=== PATIENT | male | born 1995 | race Caucasian/White ===

== ENCOUNTER 2020-08-11 12:48 | Emergency (ER) | payer BC ==
[2020-08-11 15:57] LABS: Absolute Lymphocytes (CBC) 2.4 K/uL (0.7-4.9); Basophils % 0.3 % (0-1.3); Hematocrit 43.9 % (39.6-49.0); Lymphocytes % 27.6 % (15.3-44.8); MPV 8.6 fL (7.6-11.3); Protime INR 1.02
[2020-08-11 16:12] LABS: ALT/SGPT 30 U/L (12-78); AST/SGOT 11 U/L (15-37); Albumin 4.1 g/dL (3.4-5.0); Alkaline Phosphatase 79 U/L (45-117); BUN Blood Urea Nitrogen 17 mg/dL (7-18); Bicarbonate 27 mmol/L (21-32); Bilirubin Direct 0.1 mg/dL (0-0.2); Bilirubin Total 0.5 mg/dL (0.2-1.0); Glucose Level 110 mg/dL (74-106); Magnesium 2.4 mg/dL (1.8-2.4); NT PRO-BNP 13 pg/mL (<125); Potassium 3.9 mmol/L (3.5-5.1); Protein, Total 7.3 g/dL (6.4-8.2); Sodium Level 140 mmol/L (136-145); Troponin (Emerg Dept Use Only) < 0.02 ng/mL (0.0-0.045)
[2020-08-11] MEDS ORDERED: KETOROLAC 30 MG/ML INJ ONE (16:29)
--- NOTE | 2020-08-11 16:38 | RAD REPORT ---
EXAM DESCRIPTION: RAD - Chest Single View - 08/11/2020 4:18 pm CLINICAL HISTORY: CHEST PAIN COMPARISON: None TECHNIQUE: AP portable chest image was obtained 08/11/2020 4:18 pm . FINDINGS: Lungs are clear. Heart and vasculature are normal. No measurable pleural effusion and no p neumothorax. No acute bony abnormality seen. No acute aortic findings suspected. IMPRESSION: No acute cardiopulmonary process.
--- NOTE | 2020-08-11 17:05 | EDPHYS ---
Physician Documentation [facility] Name: Griffin Eugene Age: 25 yrs Sex: Male : 1995 Arrival Date: 08/11/2020 Time: 12:49 Bed 30 Private MD: ED Physician Ken Bowman HPI: 08/11 16:18 This 25 yrs old Male presents to ER via Ambulatory with complaints of Chest jmm Pain. 16:18 The patient or guardian reports chest pain that is located primarily in the anterior [facility] chest wall. The pain does not radiate. Associated signs and symptoms: Pertinent positives: shortness of breath. The chest pain is described as sharp. Duration: The patient or guardian reports a single episode, that is still ongoing, and unchanged. Modifying factors: The symptoms are alleviated by remaining still, the symptoms are aggravated by movement, palpation of area, twisting torso. This is a 25 year old male with no known chronic medical conditions that presents to the ED with complaints of left sidwed chest pain beginning at approx 10 am. Patient states symptoms are worsened with movement. Patient states yesterday inhaling smoke inadvertently yesterday while burning paper. . Historical: - Allergies: 13:02 No Known Allergies; iw - Home Meds: 13:02 None [Active]; iw - PMHx: 13:02 None; iw - PSHx: 13:02 eye; iw - Immunization history:: Adult Immunizations. - Social history:: Smoking status: Reported history of juuling and/or vaping. ROS: 16:18 Constitutional: Negative for fever, chills, and weight loss. jmm 16:18 Cardiovascular: Positive for chest pain. 16:18 Respiratory: Positive for shortness of breath. 16:18 All other systems are negative. Exam: 16:18 Constitutional: This is a well developed, well nourished patient who is awake, alert, jmm and in no acute distress. Head/Face: atraumatic. Eyes: EOMI, no conjunctival erythema appreciated ENT: Moist Mucus Membranes Neck: Trachea midline, Supple 16:18 Respiratory: Normal respirations, no respiratory distress appreciated Abdomen/GI: Non distended, soft Back: Normal ROM Skin: General appearance color normal MS/ Extremity: Moves all extremities, no obvious deformities appreciated, no edema noted to the lower extremities Neuro: Awake and alert, normal gait Psych: Behavior is normal, Mood is normal, Patient is cooperative and pleasant 16:18 Chest/axilla: Inspection: normal, Palpation: tenderness, that is moderate, of the anterior aspect of left upper chest, that totally reproduces the patient's complaints. 16:18 Cardiovascular: Rate: normal, Rhythm: regular. Vital Signs: 13:02 BP 126 / 63; Pulse 58; Resp 17; Temp 97.6; Weight 120.2 kg; Height 5 ft. 9 in. (175.26 iw cm); Pain 6/10; 13:16 Pulse Ox 100% on R/A; ca1 16:30 BP 122 / 57; Pulse 58; Resp 17 S; Pulse Ox 99% on R/A; ca1 17:15 BP 120 / 57; Pulse 57; Resp 18 S; Pulse Ox 100% on R/A; ca1 13:02 Body Mass Index 39.13 (120.20 kg, 175.26 cm) iw MDM: 15:34 Patient medically screened. [facility] 17:03 Data reviewed: vital signs, nurses notes, lab test result(s), EKG, radiologic studies, [facility] plain films. Counseling: I had a detailed discussion with the patient and/or guardian regarding: the historical points, exam findings, and any diagnostic results supporting the discharge/admit diagnosis, lab results, radiology results, the need for outpatient follow up, to return to the emergency department if symptoms worsen or persist or if there are any questions or concerns that arise at home. ED course: Patient is alert and non toxic in appearance in the ED. HEART score = 1, PERC negative. Patient advised to return to the ED if symptoms worsen. . 08/11 15:36 Order name: Basic Metabolic Panel [facility] 08/11 15:36 Order name: CBC with Diff [facility] 08/11 15:36 Order name: LFT's; Complete Time: 16:15 [facility] 08/11 15:36 Order name: Magnesium; Complete Time: 16:15 [facility] 08/11 15:36 Order name: NT PRO-BNP; Complete Time: 16:15 [facility] 08/11 15:36 Order name: PT-INR; Complete Time: 16:02 [facility] 08/11 15:36 Order name: Troponin (emerg Dept Use Only); Complete Time: 16:15 [facility] 08/11 15:36 Order name: XRAY Chest (1 view); Complete Time: 16:46 [facility] 08/11 15:36 Order name: EKG; Complete Time: 15:36 [facility] 08/11 15:36 Order name: Cardiac monitoring; Complete Time: 15:50 [facility] 08/11 15:36 Order name: EKG - Nurse/Tech; Complete Time: 15:42 [facility] 08/11 15:36 Order name: Basic Metabolic Panel; Complete Time: 16:15 [facility] 08/11 15:36 Order name: CBC with Automated Diff; Complete Time: 16:02 [facility] 08/11 15:36 Order name: IV Saline Lock; Complete Time: 15:50 [facility] 08/11 15:36 Order name: Labs collected and sent; Complete Time: 15:50 [facility] 08/11 15:36 Order name: O2 Per Protocol; Complete Time: 15:50 [facility] 08/11 15:36 Order name: O2 Sat Monitoring; Complete Time: 15:50 [facility] Administered Medications: 16:14 Drug: Ketorolac 30 mg Route: IVP; Site: right antecubital; ca1 17:33 Follow up: Response: No adverse reaction; Pain is decreased ca1 Disposition: 17:35 Co-signature as Attending Physician, Ken Bowman MD. rn Disposition: 08/11/20 17:04 Discharged to Home. Impression: Chest pain, unspecified. - Condition is Stable. - Discharge Instructions: Nonspecific Chest Pain. - Prescriptions for Prednisone 20 mg Oral Tablet - take 3 tablet by ORAL route once daily for 5 days; 15 tablet. - Work release form, Medication Reconciliation Form, Thank You Letter, Antibiotic Education, Prescription Opioid Use form. - Follow up: Private Physician; When: 2 - 3 days; Reason: Recheck today's complaints, Continuance of care, Re-evaluation by your physician. Signatures: Dispatcher [employer] [facility] Fernie Ferrell PA PA jmm Williams, Irene, Ken Velazquez RN, MD MD rn Acob, Cheryl, RN RN ca1 Corrections: (The following items were deleted from the chart) 17:34 17:04 08/11/2020 17:04 Discharged to Home. Impression: Chest pain, unspecified. ca1 Condition is Stable. Forms are Medication Reconciliation Form, Thank You Letter, Antibiotic Education, Prescription Opioid Use. Follow up: Private Physician; When: 2 - 3 days; Reason: Recheck today's complaints, Continuance of care, Re-evaluation by your physician. victor hugo
--- NOTE | 2020-08-11 17:05 | ER ---
Nurse's Notes [facility] Name: Griffin Eugene Age: 25 yrs Sex: Male : 1995 Arrival Date: 08/11/2020 Time: 12:49 Bed 30 Private MD: Diagnosis: Chest pain, unspecified Presentation: 08/11 13:14 Chief complaint: Patient states: Chest pain 3 hrs [employer]. Denies cough, injury to chest. ca1 Coronavirus screen: Client denies travel out of the [place] in the last 14 days. At this time, the client does not indicate any symptoms associated with coronavirus-19. Ebola Screen: Patient negative for fever greater than or equal to 101.5 degrees Fahrenheit, and additional compatible Ebola Virus Disease symptoms Patient denies exposure to infectious person. Patient denies travel to an Ebola-affected area in the 21 days before illness onset. No symptoms or risks identified at this time. Initial Sepsis Screen: Does the patient meet any 2 criteria? No. Patient's initial sepsis screen is negative. Does the patient have a suspected source of infection? No. Patient's initial sepsis screen is negative. Risk Assessment: Do you want to hurt yourself or someone else? Patient reports no desire to harm self or others. Onset of symptoms was August 11, 2020. 13:14 Method Of Arrival: Ambulatory ca1 13:14 Acuity: NOY 3 ca1 13:15 Acuity: NOY 3 iw Historical: - Allergies: 13:02 No Known Allergies; iw - Home Meds: 13:02 None [Active]; iw - PMHx: 13:02 None; iw - PSHx: 13:02 eye; iw - Immunization history:: Adult Immunizations. - Social history:: Smoking status: Reported history of juuling and/or vaping. Screenin:49 Abuse screen: Denies threats or abuse. Denies injuries from another. Nutritional iw screening: No deficits noted. Tuberculosis screening: No symptoms or risk factors identified. Fall Risk IV access (20 points). Assessment: 15:48 General: Appears in no apparent distress. Behavior is calm, cooperative. Pain: iw Complains of pain in left breast Pain does not radiate. Pain began 4 hours ago. Neuro: Level of Consciousness is awake, alert, obeys commands, Oriented to person, place, time, situation, Moves all extremities. Full function. Cardiovascular: Patient's skin is warm and dry. Respiratory: Respiratory effort is even, unlabored, Respiratory pattern is regular, symmetrical. Derm: Skin is intact, is healthy with good turgor. Musculoskeletal: Range of motion: intact in all extremities. 17:24 Reassessment: Patient appears in no apparent distress at this time. Patient and/or iw family updated on plan of care and expected duration. Pain level reassessed. Patient is alert, oriented x 3, equal unlabored respirations, skin warm/dry/pink. Vital Signs: 13:02 BP 126 / 63; Pulse 58; Resp 17; Temp 97.6; Weight 120.2 kg; Height 5 ft. 9 in. (175.26 iw cm); Pain 6/10; 13:16 Pulse Ox 100% on R/A; ca1 16:30 BP 122 / 57; Pulse 58; Resp 17 S; Pulse Ox 99% on R/A; ca1 17:15 BP 120 / 57; Pulse 57; Resp 18 S; Pulse Ox 100% on R/A; ca1 13:02 Body Mass Index 39.13 (120.20 kg, 175.26 cm) iw ED Course: 12:49 Patient arrived in ED. as 13:02 Arm band placed on. iw 13:15 Triage completed. iw 15:23 Fernie Ferrell PA is PHCP. [facility] 15:23 Ken Bowman MD is Attending Physician. [facility] 15:47 Katie Avitia, SHASHANK is Primary Nurse. iw 15:48 Patient has correct armband on for positive identification. Bed in low position. Call ca1 light in reach. Side rails up X 1. charge master coordinator on. Pulse ox on. NIBP on. Warm blanket given. 15:49 No provider procedures requiring assistance completed. Initial lab(s) drawn, by me, iw sent to lab. Inserted saline lock: 20 gauge in left antecubital area, using aseptic technique. Blood collected. Patient maintains SpO2 saturation greater than 95% on room air. 15:50 Basic Metabolic Panel Sent. iw 16:15 XRAY Chest (1 view) In Process Unspecified. EDMS 17:33 IV discontinued, intact, bleeding controlled, No redness/swelling at site. Pressure ca1 dressing applied. Administered Medications: 16:14 Drug: Ketorolac 30 mg Route: IVP; Site: right antecubital; ca1 17:33 Follow up: Response: No adverse reaction; Pain is decreased ca1 Outcome: 17:04 Discharge ordered by MD. gay 17:33 Discharged to home ambulatory. ca1 17:33 Condition: stable 17:33 Discharge instructions given to patient, Instructed on discharge instructions, follow up and referral plans. medication usage, Demonstrated understanding of instructions, follow-up care, medications, Prescriptions given X 1. 17:34 Patient left the ED. ca1 Signatures: Dispatcher [employer] [facility] Fernie Ferrell PA PA jmm Martinez, Amelia as Williams, Irene, SHASHANK RN iw Thea Lei RN RN ca1 Corrections: (The following items were deleted from the chart) 13:15 13:02 Resp 17bpm; Temp 97.6F; 120.2 kg; Height 5 ft. 9 in.; BMI: 39.1; Pain 6/10; iw iw
--- NOTE | 2020-08-12 08:52 | EKG ---
Test Date: 2020-08-11 Test Time: 12:57:36 Battalion Chief: Shamir SAGASTUME MEASUREMENT RESULTS: Intervals: Rate: 56 MO: 144 QRSD: 102 QT: 400 QTc: 386 [place]: P: 41 MO: 144 QRS: 60 T: 49 INTERPRETIVE STATEMENTS: Sinus bradycardia Otherwise normal ECG Compared to ECG 05/18/2009 16:44:17 Sinus rhythm no longer present Electronically Signed On 08-12-20 08:49:39 CDT by Jamaal Mead
== END 2020-08-11 17:34 | disposition home or self-care (01) ==
LOC: ER 12:48
DX: R07.9 Chest pain, unspecified (principal)
CPT/HCPCS: 36415; 71045; 80048; 80076; 83735; 83880; 84484; 85025; 85610; 93005; 96374; 99285